=== PATIENT | male | born 2005 | race Caucasian/White ===

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

== ENCOUNTER 2023-06-13 16:36 | Emergency (ER) | payer OTHER ==
[~2023-06-13] VITALS: Ht 167.6 cm; Wt 72.6 kg
[2023-06-13 16:55] VITALS: BP 125/74; PULSE 89; RESP 18; TEMP 98; O2SAT 98
== END 2023-06-13 19:00 | disposition home or self-care (01) ==
LOC: MED 16:36
DX: S09.90XA Unspecified injury of head, initial encounter (principal); H11.31 Conjunctival hemorrhage, right eye; W05.1XXA Fall from non-moving nonmotorized scooter, initial encounter; Y93.89 Activity, other specified; Y92.89 Other specified places as the place of occurrence of the external cause; Y99.8 Other external cause status
CPT/HCPCS: 70450; 70486; 99284

== ENCOUNTER 2024-03-09 20:05 | Emergency (ER) | payer OTHER ==
[~2024-03-09] VITALS: Ht 177.8 cm; Wt 74.8 kg
[2024-03-09 20:45] VITALS: BP 110/65; PULSE 86; RESP 18; TEMP 97.3; O2SAT 99
[2024-03-09] MEDS: IBUPROFEN 600 MG TAB PO ONE (22:00)
[2024-03-09] MEDS ORDERED: CYCL-711 PO (23:56)
== END 2024-03-09 23:58 | disposition home or self-care (01) ==
LOC: MED 20:05
DX: S16.1XXA Strain of muscle, fascia and tendon at neck level, initial encounter (principal); S39.012A Strain of muscle, fascia and tendon of lower back, initial encounter; Z79.899 Other long term (current) drug therapy; V89.2XXA Person injured in unspecified motor-vehicle accident, traffic, initial encounter; Y93.89 Activity, other specified; Y92.218 Other school as the place of occurrence of the external cause; Y99.8 Other external cause status
CPT/HCPCS: 72050; 72110; 99284